=== PATIENT | male | born 1955 | race Caucasian/White ===

== ENCOUNTER 2020-09-27 08:58 | Observation (INO) ==
--- NOTE | 2020-08-26 16:00 | PAT Medication Instructions ---
Medication Instructions Date of Service August 26, 2020 Home Medications fluticasone propionate [Flonase Allergy Relief] 2 spray INTRANASAL DAILY PRN methylcellulose (laxative) [Citrucel] 1,000 mg PO QAM multivitamin 1 tab PO QAM naproxen sodium [Aleve] 440 mg PO Q12H PRN ASK your surgeon for instructions naproxen sodium [Aleve] 440 mg PO Q12H PRN DO NOT take the morning of surgery methylcellulose (laxative) [Citrucel] 1,000 mg PO QAM multivitamin 1 tab PO QAM Take morning of surgery With a small sip of water, OTHERWISE NOTHING TO EAT OR DRINK AFTER MIDNIGHT: fluticasone propionate [Flonase Allergy Relief] 2 spray INTRANASAL DAILY PRN (if needed) Other Notes If you have any questions please call us at [phone] or [phone] or [phone] or [phone]
--- NOTE | 2020-08-27 10:02 | Anesthesiology Consultation ---
Date of Service August 27, 2020 Assessment & Plan (1) Encounter for pre-operative examination: Chart Review Chart Review: Acceptable Risk for Surgery (pending preop Covid testing ) and Patient seen in Pre Admission Testing Pt aware of pros and cons to bilateral knee replacement. Per PAT appt on 08/27/20, pt resides and works in [employer] Wears mask, uses good hand hygiene and socially distances. No known Covid positive contacts or Covid related symptoms. Educated patient to follow up with surgeon's office reg arding Covid testing. Educated on importance of self quarantining, social distancing and wearing mask in public both for the patient and household contacts. Teaching & Discussion Pre-Anesthesia Teaching/Discussion Notes: Instructed NPO after midnight before surgery,except medications with 15 cc of water. Medication instructions provid ed according to the PAT guidelines. History Surgery Operation Date: 09/27/20 07:00 Proposed Procedures p Bilateral Total Knee Arthroplasty - Piyush Jensen DO Height/Weight Height: 5 ft 9 in Weight: 72.3 kg Allergies Allergy/AdvReac Type Severity Reaction Status Date / Time doxycycline Allergy Unknown Unknown Verified 08/14/20 10:27 tetracycline AdvReac Unknown Unknown Verified 08/14/20 10:27 Medications Home Medications Medication Instructions Recorded Confirmed Last Taken fluticasone propionate [Flonase 2 spray INTRANASAL DAILY PRN 10/30/18 08/27/20 Unknown Allergy Relief] methylcellulose (laxative) 1,000 mg PO QAM 10/30/18 08/27/20 Unknown [Citrucel] multivitamin 1 tab PO QAM 10/30/18 08/27/20 Unknown naproxen sodium [Aleve] 440 mg PO Q12H PRN 08/14/20 08/27/20 Unknown Wheeled Walker #1 ea 08/27/20 08/27/20 Unknown Past Medical History Medical History 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 HAND NUMBNESS- 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 INFECTION TRIGGER- STILL UNKNOWN Temporomandibular joint disorder RIGHT SIDE CLICKING- NO LOCKING Exercise / Class Metabolic Activity 1 > 8 Run/Swim/Ski/Tennis (goes to gym daily x one hour - cardio - elliptical and weight training - one flight of stairs - no chest pain or SOB ) Past Family History Family History Mother Family history of reaction to anesthesia WITH HEART SURGERY-SLOW TO WAKE UP-AGE LAST 70'S Past Surgical History Surgical History History of colonoscopy History of throat surgery REMOVAL SOFT TISSUE Hx of tonsillectomy Past Anesthesia History No Hx of Anesthesia Complications and No Family Hx of Anesthesia Complications (with exception to mother - had valve replacement - slow to wake. ) History of PONV No Hx of PONV and No Hx of Motion Sickness Social History Smoking Status: Current every day smoker Smoking cigarettes per day: 7 CIGS TRYING TO QUIT-SMOKED SINCE AGE 22 YRS Do You Dip or Chew Tobacco: No Hx Alcohol Use: Yes Alcohol type: beer alcohol intake frequency: a few times a week Hx Substance Use: No substance use type: does not use Review of Systems Hx of plasmophoresis for Guillian [place] Patient denies chest pain, shortness of breath, dyspnea on exertion, reflux, cough, wheezing, palpitations. No hx of seizures, stroke, ID, apnea/snoring. No hx of blood clots. Physical Exam Vital Signs VITALS BP 159/93 P 63 TEMP 98.2 SP02 100% RESP 16 Constitutional no acute distress ENMT Mouth: no TMJ clicking Thyromental Distance: > or= 3.5 Finger Breadths (3.5) Mallampati Class: III Missing molars Capped in molars Neck neck extension not limited Respiratory normal respiratory effort; no respiratory distress Auscultation: lungs clear to auscultation bilaterally; no wheezes Cardiovascular Rate/Rhythm: regular rate and regular rhythm Heart Sounds: no murmur Vessels: no carotid bruit Musculoskeletal Spine: no pain with cervical ROM Extremities: extremities normal to inspection Psychiatric Orientation: alert Testing Laboratory Results 08/27/20 10:23 08/27/20 09:23 PT 10.4 Seconds (9.0-12.0) 08/27/20 10: INR 1.0 (0.9-1.1) 08/27/20 10: APTT 25.0 Seconds (21.0-31.0) 08/27/20 10:23 Blood Type AB Positive 08/27/20 10:23 Antibody Screen NEGATIVE 08/27/20 10:23 Electrocardiogram Date: 08/27/20 Findings: + SB @ (57) and + no change from (May 05, 2016 ) Left axis deviation. Chest X-Ray Date: 08/27/20 Findings: + NAD
[2020-08-27 10:46] LABS: Basophils # (auto) 0.01 K/uL (0-0.2); Basophils % (auto) 0.2 %; Eosinophils # (auto) 0.07 K/uL (0-0.5); Eosinophils % (auto) 1.4 %; Hematocrit (blood only) 47.1 % (42-52); Hemoglobin 15.6 g/dL (14.0-18.0); Immature Granulocytes # (auto) 0.01 K/uL (0.00-0.02); Immature Granulocytes % (auto) 0.2 %; Lymphocytes # (auto) 1.24 K/uL (1.2-3.4); Mean Corpuscular Hemoglobin 32.5 pg (25-34); Mean Corpuscular Hgb Conc 33.1 g/dL (32-36); Mean Corpuscular Volume 98.1 fL (80-100); Monocytes % (auto) 11.6 %; Neutrophils # (auto) 3.23 K/uL (1.4-6.5); Neutrophils % (auto) 62.6 %; Platelet Count 221 K/uL (130-400); RDW Coefficient of Variation 14.1 % (11.5-14.5); White Blood Count 5.16 K/uL (4.8-10.8)
[2020-08-27 10:58] LABS: Partial Thromboplastin Ratio 0.9; Prothrombin Time 10.4 Seconds (9.0-12.0)
--- NOTE | 2020-08-27 11:07 | XRay Report ---
XR chest Pre-admission PA/Lat HISTORY: 65 years-old Male pat preoperative exam. No acute chest complaints COMPARISON: Chest radiograph 10/31/2018 TECHNIQUE: PA and lateral views of the chest FINDINGS: Cardiomediastinal and hilar silhouettes are within normal limits. No pneumothorax, pleural effusion, airspace consolidation or overt pulmonary edema. Bones of the chest appear grossly intact. IMPRESSION: No acute process. ACT 112: Negative or not required by law. The above report was generated using voice recognition software. It may contain grammatical, syntax o r spelling errors. Electronically signed by: Sarbjit Mooney M.D. 08/27/2020 11:06 AM
[2020-08-27 11:47] LABS: BUN Creatinine Ratio 15.8 (10-20); Calcium 8.9 mg/dl (8.5-10.1); Creatinine Clr Calc Pharmacy 76.4 ml/min; Est GFR (African American) 93.6; Est GFR (Non-African American) 80.7; Potassium 4.3 mmol/L (3.5-5.1)
--- NOTE | 2020-08-27 12:50 | Electrocardiogram Report ---
Test Reason : Blood Pressure : / mmHG Vent. Rate : 057 BPM Atrial Rate : 057 BPM P-R Int : 174 ms QRS Dur : 090 ms QT Int : 402 ms P-R-T Axes : 056 -67 062 degrees QTc Int : 391 ms Sinus bradycardia Left axis deviation Abnormal ECG When compared with ECG of 05-MAY-2016 10:17, No significant change was found Confirmed by Colton Kim ([id number]) on 08/27/2020 12:50:26 PM Referred By: Piyush Jensen Confirmed By:Dallin Kim
--- NOTE | 2020-09-27 08:44 | History & Physical Report ---
Date of Service September 27, 2020 Assessment & Plan (1) Bilateral primary osteoarthritis of knee: We will proceed with bilateral total knee arthroplasties. Postoperatively he will be kept overnight in the hospital for postoperative medical management. He plans to use energy physical therapy upon discharge. Present on Admission?: Yes History of Present Illness Chief Complaint: Primary osteoarthritis of bilateral knees Primary Care Provider: Shweta Muhammad DO Vasile is a pleasant 65-year-old male who is been dealing with chronic increasing bilateral knee pain. X-rays and clinical examination have been diagnostic for advanced osteoarthritis of both knees. After failing conservative treatment, he has elected to proceed with bilateral total knee arthroplasties. Allergies Allergy/AdvReac Type Severity Reaction Status Date / Time doxycycline Allergy Unknown Unknown Verified 08/14/20 10:27 tetracycline AdvReac Unknown Unknown Verified 08/14/20 10:27 Home Medications Medication Instructions Recorded Confirmed Type fluticasone propionate [Flonase 2 spray INTRANASAL DAILY PRN 10/30/18 08/27/20 History Allergy Relief] methylcellulose (laxative) 1,000 mg PO QAM 10/30/18 08/27/20 History [Citrucel] multivitamin 1 tab PO QAM 10/30/18 08/27/20 History naproxen sodium [Aleve] 440 mg PO Q12H PRN 08/14/20 08/27/20 History Wheeled Walker #1 ea 08/27/20 08/27/20 Rx Past Med/Surg History Medical History 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 HAND NUMBNESS- 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 INFECTION TRIGGER- STILL UNKNOWN Temporomandibular joint disorder RIGHT SIDE CLICKING- NO LOCKING Surgical History History of colonoscopy History of throat surgery REMOVAL SOFT TISSUE Hx of tonsillectomy Family History Mother Family history of reaction to anesthesia WITH HEART SURGERY-SLOW TO WAKE UP-AGE LAST 70'S Social History Smoking Status: Current every day smoker Cigarettes Per Day: 7 CIGS TRYING TO QUIT-SMOKED SINCE AGE 22 YRS; Second Hand Exposure: No; Hx Alcohol Use: Yes Alcohol type: beer Hx Substance Use: No Preferred Language: Marshallese Communication Ability: Effective Supervisor Instrument Repair Required: No Beliefs That Will Affect Care: None Current Living Situation: Spouse Feels Safe at Home: Yes Assistive Devices: Glasses Review of Systems Review of Systems: All systems reviewed & are unremarkable except as noted in HPI & below Physical Exam Constitutional: WD/WN, vitals as above Eyes: PERRL, conjunctivae normal, anicteric sclerae ENMT: external ear and nose normal, oropharynx normal Neck: trachea midline, no thyromegaly Respiratory: normal respiratory effort Cardiovascular: RRR, no murmur, no edema Gastrointestinal (Abdomen): normal bowel sounds, soft, nontender, no hepatosplenomegaly Musculoskeletal: On physical examination of the both knees there is a trace effusion. There is near full range of motion and no evidence of instability. There is significant tenderness palpation along the medial and lateral joint lines and over the distal femoral condyles. Psychiatric: A+Ox3, euthymic affect Results & Data Results & Data ([facility]) Diagnostic Findings Radiographs of the both knees demonstrate advanced osteoarthritis with joint space narrowing osteophyte formation and [id number] articulation. PG Care Time/CCT Total # of Minutes Spent Total Time Spent with Patient: Total time spent is greater than 50% in coordination of care (as documented) at patient's floor/unit and/or counseling patient: Coding Level of Care Code None Diagnoses Bilateral primary osteoarthritis of knee M17.0
[~2020-09-27 08:58] MED LIST: ACETAMINOPHEN 500 MG TAB PO SCH; BUPIVACAINE 0.25% 30 ML VIAL ONE; BUPIVACAINE 0.5 % 5 MG/1 ML PF 10ML VIAL ONE; FAMOTIDINE 20 MG TAB PO SCH; GABAPENTIN 600 MG DOSE PO SCH; LR 500ML BOLUS, THEN 15ML/HR IV SCH; LR 60ML/HR IV SCH; ROPIVACAINE 0.5% HCL/PF 150 MG, BUPIVACAINE 0.5% MPF 30 ML, EPINEPHrine 30MG/30ML (OR U... INSTIL SCH; TRANEXAMIC ACID 1,000 MG **IV Intra-op IV SCH; ceFAZolin 1000MG 1,000 MG/7.5 ML SYR IV SCH; dexAMETHasone 4 MG TAB PO SCH
[2020-09-27] MEDS ORDERED: MIDAZOLAM HCL 1 MG/ML 2ML VIAL ONE ×2 (10:02→10:03)
[2020-09-27] MEDS: TRANEXAMIC ACID 1,000 MG **IV Pre-op IV SCH ×2 (10:16→11:06)
[2020-09-27] MEDS ORDERED: fentaNYL citrate 100 MCG/2 ML VIAL ONE (10:36)
[2020-09-27] MEDS ORDERED: PROPOFOL IV EMULSION 10 MG/ML 20 ML VIAL IV ONE (10:36)
[2020-09-27] MEDS ORDERED: ONDANSETRON INJ 2 MG/ML 2 ML VIAL ONE (10:36)
[2020-09-27] MEDS ORDERED: HYDROmorphone INJ 2 MG/ML SYR/VIAL IV PRN (10:40)
[2020-09-27] MEDS ORDERED: ATROPINE SULFATE 0.1 MG/ML 10ML SYR IV PRN (10:40)
[2020-09-27] MEDS ORDERED: fentaNYL citrate 100 MCG/2 ML VIAL IV PRN (10:40)
[2020-09-27] MEDS ORDERED: ONDANSETRON INJ 2 MG/ML 2 ML VIAL IV PRN ×2 (10:40→16:11)
[2020-09-27] MEDS ORDERED: ePHEDrine sulfate 50 MG/ML AMP IV PRN (10:40)
[2020-09-27] MEDS ORDERED: ORTHO JOINT ANESTHETIC ONE (10:55)
[2020-09-27] MEDS ORDERED: HYDROmorphone INJ 2 MG/ML SYR/VIAL ONE (12:05)
[2020-09-27] MEDS ORDERED: ROCURONIUM BROMIDE 10 MG/ML 5 ML VIAL IV ONE (13:22)
--- NOTE | 2020-09-27 13:48 | Operative Report ---
PG Post Operative Report Pre & Post Diagnosis Operation Date: 09/27/20 11:10 Pre-Op Diagnosis: Bilateral Knee Degenerative Joint Disease Post-Op Diagnosis: Bilateral Knee Degenerative Joint Disease I identified the patient and participated in the time-out.: Yes Procedure Operation Date: 09/27/20 11:10 Actual Procedures p Bilateral Total Knee Arthroplasty(Bilateral) - Piyush Jensen DO Surgeon Piyush Jensen DO Supervisor Tumbling And Rolling Piyush Marie PAC Estimated Blood Loss 40 Findings Consistent with Post-Op Diagnosis Specimens Right and left femoral and tibial bone Complications none Disposition Disposition: Recovery Room Indications Vasile is a pleasant 65-year-old male who is been doing chronic increasing bilateral knee pain. X-rays and clinical examination were diagnostic for advanced osteoarthritis of both knees. After failing conservative treatment, he elected to proceed with bilateral total knee arthroplasties. Description of Procedure Vasile arrived [facility] for the above procedure. He was seen in the preoperative holding area and both knees were identified and signed. He was given a preoperative antibiotic, TXA, a spinal anesthetic and adductor nerve blocks. He was taken back to the operating room and laid on the table in supine position. He was given basic sedation. Both knees were then prepped and draped in sterile fashion. A timeout was done, and the patient and the operative extremities were properly identified. Right knee implants used: I used a Efrain Persona total knee arthroplasty system with a size 9 standard femur, F tibia, 32 patella, and a size 10 medial congruent polyethylene bearing. All components were cemented in place with Palacos G cement. A midline incision was made directly over the patella. Dissection was taken down to the extensor mechanism. A subvastus arthrotomy was used. The medial retinaculum was released and the fat pad was mostly excised. The knee was flexed and the ACL, PCL, and meniscus were removed. A drill was sent down the center of the femoral canal followed by an intramedullary dar. Off that dar a distal femoral cutting block was placed. 9 mm was resected off the distal femur at 5 of valgus. A posterior referencing AP sizing guide was then placed on the distal femur. The femur measured to be a size 9 standard. 2 drill holes were placed in 3 of external rotation. A 4-in-1 cutting block was then impacted into place. Anterior, posterior, and chamfer cuts were then made. The proximal tibia was then exposed. An external tibial alignment guide was placed. A tibial cut guide was then anchored in place and the proximal tibia was then resected. The posterior aspect of the knee was then opened up and any additional meniscus fragments and osteophytes were removed. The tibia measured to be a size F. The tibial plate was then placed in the appropriate rotation and the tibia was drilled and punched. Trial components were then placed. I used a size 10 medial congruent polyethylene insert. The knee was brought through a full range of motion and felt to be stable. The peg holes for the femur were then drilled. The patella was then everted and 9 mm was resected off the posterior aspect of the patella. The patella measured to be a size 32. 3 peg holes were then drilled. A trial patella was placed. The knee was once again brought through a full range of motion and felt to be stable. Trial components were then removed. The surrounding soft tissues were injected with 50 cc of an orthopedic pain control cocktail. All components were then cemented into place with Palacos G cement. The final polyethylene insert was then snapped into place. Once cement was dry the tourniquet was deflated. Hemostasis was obtained. A dilute betadyne lavage was then done for 3 minutes. The joint was then irrigated with normal saline solution. The subvastus arthrotomy was then closed with #1 Vicryl suture. The skin was closed with 2-0 Vicryl, 3-0V lock suture, and nick. A Silverlon and a soft compressive dressing were placed. Left knee implants used: I used a Efrain Persona total knee arthroplasty system with a size 9 standard femur, F tibia, 32 patella, and a size 10 medial congruent polyethylene bearing. All components were cemented in place with Palacos G cement. A midline incision was made directly over the patella. Dissection was taken down to the extensor mechanism. A subvastus arthrotomy was used. The medial retinaculum was released and the fat pad was mostly excised. The knee was flexed and the ACL, PCL, and meniscus were removed. A drill was sent down the center of the femoral canal followed by an intramedullary dar. Off that dar a distal femoral cutting block was placed. 9 mm was resected off the distal femur at 5 of valgus. A posterior referencing AP sizing guide was then placed on the distal femur. The femur measured to be a size 9 standard. 2 drill holes were placed in 3 of external rotation. A 4-in-1 cutting block was then impacted into place. Anterior, posterior, and chamfer cuts were then made. The proximal tibia was then exposed. An external tibial alignment guide was placed. A tibial cut guide was then anchored in place and the proximal tibia was then resected. The posterior aspect of the knee was then opened up and any additional meniscus fragments and osteophytes were removed. The tibia measured to be a size F. The tibial plate was then placed in the appropriate rotation and the tibia was drilled and punched. Trial components were then placed. I used a size 10 medial congruent polyethylene insert. The knee was brought through a full range of motion and felt to be stable. The peg holes for the femur were then drilled. The patella was then everted and 9 mm was resected off the posterior aspect of the patella. The patella measured to be a size 3266. 3 peg holes were then drilled. A trial patella was placed. The knee was once again brought through a full range of motion and felt to be stable. Trial components were then removed. The surrounding soft tissues were injected with 50 cc of an orthopedic pain control cocktail. All components were then cemented into place with Palacos G cement. The final polyethylene insert was then snapped into place. Once cement was dry the tourniquet was deflated. Hemostasis was obtained. A dilute betadyne lavage was then done for 3 minutes. The joint was then irrigated with normal saline solution. The subvastus arthrotomy was then closed with #1 Vicryl suture. The skin was closed with 2-0 Vicryl, 3-0V lock suture, and nick. A Silverlon and a soft compressive dressing were placed. He was then transferred to a hospital bed and taken to the postanesthesia care unit in stable condition. He tolerated the procedure well. Piyush Marie PA-C, was present for the entire procedure. He was critical for patient positioning, prepping, draping, retraction exposure, wound closure and application of sterile dressing. I attest to the content of the Intraoperative Record and any orders documented therein. Any exceptions are noted below.
[2020-09-27] MEDS ORDERED: LIDOCAINE HCL 2% 2 ML VIAL/AMP(20MG/ML) INFIL ONE (14:01)
--- NOTE | 2020-09-27 14:34 | XRay Report ---
XR knee LT 1 or 2V routine CLINICAL HISTORY: Surgical Post Op COMPARISON: None. DISCUSSION: There are postsurgical changes of a total left knee arthroplasty and patellar resurfacing . The femoral tibial components appear well seated. There are overlying skin nick. There is gas pr esent within the soft tissues consistent with recent surgery IMPRESSION: Postsurgical changes of a total left knee arthroplasty. ACT 112: Negative or not required by law. Electronically signed by: Eron Durbin M.D. 09/27/2020 2:33 PM
--- NOTE | 2020-09-27 14:34 | XRay Report ---
XR knee RT 1 or 2V routine CLINICAL HISTORY: Surgical Post Op COMPARISON: None. DISCUSSION: There are postsurgical changes of a total right knee arthroplasty and patellar resurfacin g. There are overlying skin nick. There is gas present within the soft tissues consistent with rec ent surgery. IMPRESSION: Postsurgical changes of a total right knee arthroplasty. ACT 112: Negative or not required by law. Electronically signed by: Eron Durbin M.D. 09/27/2020 2:32 PM
--- NOTE | 2020-09-27 14:53 | Anesthesiology Progress Note ---
Date of Service September 27, 2020 Anesthesia Post Procedure Vital Signs Vital Signs: Temp Pulse Pulse Resp BP Pulse Ox 09/27/20 14:40 61 12 152/74 H 100 09/27/20 14:30 56 L 12 163/82 H 100 09/27/20 14:20 60 12 151/80 H 100 09/27/20 14:14 36.4 C L 61 17 150/79 H 100 09/27/20 10:23 36.7 C 62 16 158/89 H 99 09/27/20 09:28 37.1 C 66 16 152/89 H 99 Pain Intensity Bilateral Knee: Pain Intensity: 0 Transfer of Care Handoff Completed per policy Notes Mental Status: alert / awake / arousable and participated in evaluation Patient Amnestic to Procedure: Yes Nausea / Vomiting: adequately controlled Pain: adequately controlled Airway Patency, RR, SpO2: stable & adequate BP & HR: stable & adequate Hydration State: stable & adequate Anesthetic Complications: no major complications apparent and Pt Satisfied with anesthetic care
[2020-09-27] MEDS ORDERED: HYDROmorphone INJ 0.5 MG/0.5 ML SYR IV PRN (16:11)
[2020-09-27] MEDS ORDERED: FLUTICASONE PROPIONATE NA SPR 16 GM BTL PRN (16:11)
[2020-09-27] MEDS ORDERED: METOCLOPRAMIDE HCL INJ 5 MG/ML 2 ML VIAL IV PRN (16:11)
[2020-09-27] MEDS ORDERED: NALOXONE HCL 0.4 MG/1 ML VIAL/CARP IV PRN (16:11)
[2020-09-27] MEDS ORDERED: MAGNESIUM HYDROXIDE SUSP 30 ML UDC PO PRN (16:11)
[2020-09-27] MEDS ORDERED: bisacodyL 10 MG SUPP PR PRN (16:11)
[2020-09-27] MEDS: SODIUM CHLORIDE 0.9% 1000ML 1,000 ML IV SCH (18:32)
[2020-09-27] MEDS: ceFAZolin 2000MG 2,000 MG/15 ML SYR IV SCH (18:32)
[2020-09-27] MEDS: KETOROLAC 30 MG/ML VIAL IV SCH (18:34)
[2020-09-27] MEDS: oxyCODONE HCL IR 5 MG TAB (IMMEDIATE RELEASE) PO PRN ×2 (18:36→22:34)
[2020-09-27] MEDS: DOCUSATE SODIUM 100 MG CAP PO SCH (21:03)
[2020-09-27] MEDS: ACETAMINOPHEN 500 MG TAB PO SCH (21:03)
[2020-09-27] MEDS: ASPIRIN 81 MG ECTAB PO SCH (21:03)
[2020-09-27] MEDS: SENNA 8.6 MG TAB PO SCH (21:04)
[2020-09-28] MEDS: ceFAZolin 2000MG 2,000 MG/15 ML SYR IV SCH (00:58)
[2020-09-28] MEDS: KETOROLAC 30 MG/ML VIAL IV SCH ×5 (00:58→23:54)
[2020-09-28] MEDS: SODIUM CHLORIDE 0.9% 1000ML 1,000 ML IV SCH (03:31)
[2020-09-28 04:25] LABS: Hematocrit (blood only) 37.9 % (42-52); Hemoglobin 12.6 g/dL (14.0-18.0); Mean Corpuscular Hemoglobin 32.4 pg (25-34); Mean Corpuscular Hgb Conc 33.2 g/dL (32-36); Mean Corpuscular Volume 97.4 fL (80-100); Mean Platelet Volume 9.5 fL (7.4-10.4); Platelet Count 200 K/uL (130-400); RDW Standard Deviation 50.1 fL (36.4-46.3); Red Blood Count 3.89 M/uL (4.7-6.1); White Blood Count 11.83 K/uL (4.8-10.8)
[2020-09-28 04:41] LABS: BUN Creatinine Ratio 15.2 (10-20); Creatinine Clr Calc Pharmacy 73.4 ml/min; Est GFR (African American) 89.2; Est GFR (Non-African American) 76.9; Potassium 4.1 mmol/L (3.5-5.1)
[2020-09-28] MEDS ORDERED: dexAMETHasone 4 MG TAB PO SCH (08:00)
[2020-09-28] MEDS: ACETAMINOPHEN 500 MG TAB PO SCH ×3 (17:48→20:46)
[2020-09-28] MEDS: DOCUSATE SODIUM 100 MG CAP PO SCH ×2 (17:48→20:46)
[2020-09-28] MEDS: MULTIVITAMIN TAB PO SCH (17:49)
[2020-09-28] MEDS: ASPIRIN 81 MG ECTAB PO SCH ×2 (17:49→20:46)
[2020-09-28] MEDS: oxyCODONE HCL IR 5 MG TAB (IMMEDIATE RELEASE) PO PRN (20:45)
[2020-09-28] MEDS: SENNA 8.6 MG TAB PO SCH (20:46)
[2020-09-29] MEDS: oxyCODONE HCL IR 5 MG TAB (IMMEDIATE RELEASE) PO PRN ×3 (00:55→10:46)
[2020-09-29] MEDS: KETOROLAC 30 MG/ML VIAL IV SCH ×2 (06:31→11:37)
[2020-09-29] MEDS: ACETAMINOPHEN 500 MG TAB PO SCH (06:31)
[2020-09-29] MEDS: ASPIRIN 81 MG ECTAB PO SCH (08:04)
[2020-09-29] MEDS: MULTIVITAMIN TAB PO SCH (08:05)
[2020-09-29] MEDS: DOCUSATE SODIUM 100 MG CAP PO SCH (08:05)
--- NOTE | 2020-09-29 09:18 | Orthopedic Progress Note ---
Date of Service September 29, 2020 Assessment & Plan (1) Status post bilateral knee replacements: Overall he is doing very well. Is not having too much pain in the knees. He is participating well with physical therapy. He is on aspirin twice a day for DVT prophylaxis. He needs to use his SHAMIKA hose stockings as well. He will be seen by physical therapy again today for ambulation and range of motion exercises. He can be discharged home later today. He will follow-up with orthopedics in 2 weeks. Present on Admission?: Yes Admission and Anticipated Discharge Date Admission Date: September 27, 2020 Rober Burnette was seen and examined at bedside this morning. Overall is doing very well. He was able to participate well with physical therapy yesterday, ambulating up and down the hallway and going up and down stairs. He is having a little bit of soreness in his knees but is not too bad. He is happy with his progress and has no complaints. Physical Exam Physical Exam: On physical examination of both knees, the dressings are clean and dry. There is a little bit of ecchymosis but not much. He has ice on both knees. He has active dorsiflexion and plantarflexion of both ankles. Sensation is intact throughout. Results & Data ([facility]) Vital Signs (Past 12 Hours) Vital Signs Temp Pulse Resp BP Pulse Ox 09/29/20 08:09 36.6 C 63 16 142/71 H 96 09/28/20 23:08 37.1 C 63 16 166/79 H 95 PG Care Time/CCT Total # of Minutes Spent Total Time Spent with Patient: Total time spent is greater than 50% in coordination of care (as documented) at patient's floor/unit and/or counseling patient: Coding Level of Care Code None Diagnoses Status post bilateral knee replacements Z96.653
--- NOTE | 2020-09-29 09:19 | Discharge Summary ---
Date of Service September 29, 2020 Admission HPI Per Admitting Provider Vasile is a pleasant 65-year-old male who is been dealing with chronic increasing bilateral knee pain. X-rays and clinical examination have been diagnostic for advanced osteoarthritis of both knees. After failing c onservative treatment, he has elected to proceed with bilateral total knee arthroplasties. Principal Diagnosis Bilateral knee replacement Discharge Data Allergies Allergy/AdvReac Type Severity Reaction Status Date / Time doxycycline Allergy Unknown Unknown Verified 09/27/20 09:19 tetracycline AdvReac Unknown Unknown Verified 09/27/20 09:19 Consultations 09/27/20 16:11 Consult Case Management - Discharge Planning Routine Procedures Performed Operation Date: 09/27/20 11:10 Actual Procedures p Bilateral Total Knee Arthroplasty(Bilateral) - Piyush Jensen DO Ordered Studies 09/27/20 05:00 US - OR guided needle placemen Routine Hospital Course (1) Status post bilateral knee replacements: On September 27, 2020 Vasile arrived at [facility] and underwent bilateral knee replacements without complication. He had a spinal anesthetic. Postoperatively he was started on aspirin for DVT prophylaxis and transferred to the general orthopedic floors. His hospital course was uneventful. On postop day #1 his H&H was stable and his pain was well controlled. He was able to participate well with physical therapy doing ambulation and range of motion exercises. On postop day #2 he continued to do well. His pain was well controlled. He was seen by physical therapy 1 more time. He was then discharged home. He will follow-up with orthopedics in 2 weeks. Total Time Total Time Spent Total Time Spent (In Minutes): 20 Discharge Plan Discharge Items Patient Disposition: Home - Home Health Services Reason For Visit: Bilateral Knee Degenerative Joint Disease Discharge Diagnosis: Bilateral knee replacements Activity: As commented below Non-emergency contact: Surgeon Call non-emergency contact if: your wound has increased redness and your wound has increased drainage Follow-up/Referrals: Shweta Muhammad DO [Primary Care Provider] - Diet: Regular Addtl Attending Provider Instructions: Activity and Therapy Recommendations: * If you are using [facility] then therapy will be provided at your home until they feel you have accomplished all of your goals. * If you are using [facility] then Physical Therapy will be provided until they feel you are ready to start Outpatient Physical Therapy. * If you are not using home therapy then Outpatient Physical Therapy should start about 3-5 days from your day of surgery. Therapy will last about 6-10 weeks * It is important not to put a pillow under your knee when you are relaxing or sleeping. It is just as important to make sure you are getting your knee perfectly straight as it is to regain your knee bend. * You were shown a series of exercises in the hospital. Do these exercises three times each day including the exercises you were shown in physical therapy. * Get up and walk several times each day. For the first four weeks, try not to stand or walk for more than one hour at a time. If you do stand or walk for more than one hour, you will not hurt anything, but your leg will likely swell. * As you feel comfortable, you may change from the walker or crutches to a cane and then to independent walking. Medications: * Narcotic You will likely be sent home from the hospital with a prescription for the narcotic pain medication that worked best throughout your stay. * Aspirin Most patients will be required to take Aspirin 81mg twice a day for 6 weeks after surgery. This is obtained [id number] and a prescription is not necessary. * Other medications may be prescribed for specific circumstances. If you have any questions, please call the office at . * Resume previous home medications unless otherwise instructed TEDs/Elastic Stockings: The white elastic stockings help limit swelling and prevent blood clots from forming in your legs.~ The more you wear them, the more they work. Wear them for six weeks. Dressing Care: Leave the Silverlon dressing in place for 7 days. After 7 days you may remove the dressing. If the incision is not draining then you may leave the nick open to air. If there is a little bit of drainage or if the nick are getting stuck on your clothing then cover the incision with a dry dressing. The nick will be removed at your 2 week follow-up appointment. Showering: You may shower with the Silverlon dressing in place. Do not let the shower spray hit the dressing directly. Pat the Silverlon dressing dry. If the dressing becomes wet underneath, then simply remove the dressing. Keep the incision dry until you are 7 days out from the day of surgery. After 7 days you may remove the Silverlon dressing and shower with the nick exposed. Let soapy water run over the nick and pat them dry. Do not scrub or soak the incision. Things To Watch For: * Drainage from the incision site that occurs more than one week after your surgery. * Increased redness at the incision site. * Fever above 102 degrees Fahrenheit. * Unusual chest pain or shortness of breath. * Call [facility] at with any of the above problems Follow-Up Visit: Follow-up with Dr. Jensen's PA (Piyush Marie) 2-3 weeks after your day of surgery. He will remove your nick and answer any questions. If you have any additional questions or concerns, Dr Jensen is usually in the office at the same time and will be available An appointment was probably scheduled when you signed-up for surgery in the office. If you have any questions call Office Instructions: More detailed instructions as well as Frequently Asked Questions were provided in a folder by our office when you signed-up for surgery. Please review these instructions when you get home. If you have any further questions or concerns, please feel free to call the office at [phone] Pending Studies at Discharge: No Stand-Alone Forms: My [facility], Smoking Cessation Medications and DC Order Prescriptions: New oxycodone 5 mg Tablet 5 mg PO Q4H PRN (Reason: pain) Qty: 30 RF: 0 aspirin 81 mg Tablet,Delayed Release (Dr/Ec) 81 mg PO BID 42 Days Qty: 0 RF: 0 Continued (DME) Wheeled Walker Misc See Rx Instructions .MEDSUPPLY Qty: 1 RF: 0 multivitamin Tablet 1 tab PO QAM RF: 0 Citrucel 500 mg Tablet 1,000 mg PO QAM RF: 0 fluticasone propionate [Flonase Allergy Relief] 50 mcg/actuation spray,suspension 2 spray Intranasal DAILY PRN (Reason: Allergy Symptoms) RF: 0 naproxen sodium [Aleve] 220 mg Capsule 440 mg PO Q12H PRN (Reason: Pain) RF: 0 Discharge Orders: Discharge Order (Routine); Ordered 09/29/20 Ordered By: Piyush Jensen Admission Data Admit Date/Time: 09/27/20 14:15 Attending Provider: Piyush Jensen Admit Provider: Piyush Jensen Primary Care Provider: Shweta Muhammad Coding Level of Care Code D/C Day Management <30 mins Diagnoses Status post bilateral knee replacements Z96.653
== END 2020-09-29 12:46 | disposition home health service (06) ==
LOC: ASU 08:58 → 3E 08:58 → UNDODISOB 09-28 14:21 → 3N 09-28 14:21